=== PATIENT | female | born 1990 | race Caucasian/White ===

== ENCOUNTER 2022-05-01 12:22 | Emergency (ER) | payer OTHER ==
[2022-05-01 13:21] LABS: INFLUENZA A NAA NEGATIVE (NEGATIVE)
[2022-05-01 13:23] LABS: CORONAVIRUS 2019 SARS-COV-2 POSITIVE (NEGATIVE)
[2022-05-01] MEDS ORDERED: ONDANSETRON ODT4 MG PO (14:02)
== END 2022-05-01 14:12 | disposition home or self-care (01) ==
LOC: FER 12:22
PROVIDERS: Physician Assistant
DX: U07.1 COVID-19 (principal); F17.210 Nicotine dependence, cigarettes, uncomplicated
CPT/HCPCS: 71046; U0002